=== PATIENT | male | born 2000 | race Caucasian/White ===

== ENCOUNTER 2023-06-04 21:56 | Emergency (ER) | payer BC ==
[~2023-06-04] VITALS: Ht 172.7 cm; Wt 95.7 kg
[2023-06-04 22:02] VITALS: BP_SYST 149; PULSE 85; RESP 18; TEMP 97; O2SAT 98
[2023-06-04] MEDS ORDERED: LIDOCAINE/EPI 1% 1:100000 20 ML VIAL ONE (22:18)
[2023-06-04 23:00] VITALS: BP_SYST 145; PULSE 83; RESP 18; TEMP 97.1; O2SAT 98
[2023-06-04] MEDS ORDERED: BACITRACIN 1 GM OINT TP ONE (23:00)
== END 2023-06-04 23:00 | disposition home or self-care (01) ==
LOC: SED 21:56
DX: S01.81XA Laceration without foreign body of other part of head, initial encounter (principal); Z79.899 Other long term (current) drug therapy; W21.04XA Struck by golf ball, initial encounter; Y93.89 Activity, other specified; Y92.89 Other specified places as the place of occurrence of the external cause; Y99.8 Other external cause status
CPT/HCPCS: 99282

== ENCOUNTER 2023-06-17 12:18 | Emergency (ER) | payer BC ==
[~2023-06-17] VITALS: Ht 177.8 cm; Wt 85.7 kg
[2023-06-17 12:32] VITALS: BP_SYST 119; PULSE 81; RESP 18; O2SAT 98
== END 2023-06-17 13:01 | disposition home or self-care (01) ==
LOC: SED 12:18
DX: Z48.02 Encounter for removal of sutures (principal); Z79.899 Other long term (current) drug therapy
CPT/HCPCS: 99281